=== PATIENT | female | born 1980 | race Caucasian/White ===

== ENCOUNTER → 2017-01-25 | Outpatient (CLI) | payer OTHER ==
--- NOTE | 2017-01-25 12:16 | Diagnostic Imaging Report ---
EXAMINATION: Transvaginal pelvic ultrasound. INDICATION: Dating. FINDINGS: There is an intrauterine gestational sac with mean sac diameter of 19 mm. This corresponds with gestational age of 6 weeks and 6 days and with an SAMEER of 09/14/2017. There is a yolk sac seen. No embryo is identified. There is a small subchorionic hemorrhage measuring 1.2 x 3 mm. The left adnexa demonstrates a bilobed cystic lesion measuring 5.1 x 4.5 x 4.7 cm with thin septation seen. Surrounding ovarian tissue appears to have arterial waveforms seen. The right ovary is obscured by bowel gas. IMPRESSION: There is an intrauterine with yolk sac seen. At the current size of the sac, an embryo would typically be seen. The findings are concerning for failed although at this stage this is not considered definitive. Correlate with serial beta-hCG and followup ultrasound. Report was stat faxed to office of Dr. Antoinette Sherman @ 12:16 PM/miguelangel. Dictated by: Dictated on workstation # [id number]
== END ==
LOC: RAD 10:51
PROVIDERS: ATTEND Family Medicine
DX: Z34.91 Encounter for supervision of normal pregnancy, unspecified, first trimester (principal)
CPT/HCPCS: 76817

== ENCOUNTER → 2017-02-10 | Outpatient (CLI) | payer OTHER ==
--- NOTE | 2017-02-10 15:42 | Diagnostic Imaging Report ---
PROCEDURE: US OB SINGLE FETUS <14 WKS. TECHNIQUE: Multiple real-time grayscale images were obtained over the gravid uterus in various projections. INDICATION: Pelvic pain, followup threatened . COMPARISON: 01/25/2017. DISCUSSION: Single live intrauterine at 9 weeks 2 days by today's sonographic measurements. EDC is 09/13/2017. heart rate measures 169 beats per minute. [place]-rump length measures 2.5 cm. Neither ovary was visualized, likely obscured by bowel. No abnormal adnexal mass or fluid. IMPRESSION: 1. Single live intrauterine at 9 weeks 2 days by today's sonographic measurements. Dictated by: Dictated on workstation # [id number]
== END ==
LOC: RAD 12:26
PROVIDERS: ATTEND Family Medicine
DX: O20.0 Threatened abortion (principal); Z3A.09 9 weeks gestation of pregnancy
CPT/HCPCS: 76801

== ENCOUNTER → 2017-05-01 | Outpatient (CLI) | payer OTHER ==
--- NOTE | 2017-05-01 14:52 | Diagnostic Imaging Report ---
EXAMINATION: Right lower extremity duplex venous ultrasound. TECHNIQUE: DVT protocol. Multiple sonographic images with color Doppler and waveform interrogation were performed of the right lower extremity veins with compression and augmentation maneuvers. INDICATION: Right leg right calf pain. FINDINGS: The right lower extremity veins from the groin to below the knee veins were examined with normal color-flow, compressibility and normal waveform demonstrated. The great saphenous vein is patent. IMPRESSION: No evidence of DVT in the right lower extremity. Dictated by: Dictated on workstation # [id number]
== END ==
LOC: RAD 14:16
PROVIDERS: ATTEND Family Medicine
DX: Z36 Encounter for antenatal screening of mother (principal); Z3A.20 20 weeks gestation of pregnancy

== ENCOUNTER → 2017-06-01 | Outpatient (CLI) | payer MEDICAID ==
--- NOTE | 2017-06-01 17:17 | Diagnostic Imaging Report ---
INDICATION: survey. TECHNIQUE: Multiple real-time grayscale images were obtained over the gravid uterus. COMPARISON: None. FINDINGS: heart rate is 134 beats per minute. The placenta is posterior. No placenta previa. The cervix is closed and is 5.6 cm in length. Adequate amniotic fluid is seen. The posterior fossa, the lateral ventricles, the four-chamber view, stomach, kidneys, bladder and the spine appear unremarkable. Three-vessel cord and the cord insertion are not well demonstrated. Biometrical measurements are as follows: Biparietal 6.4 cm, age 25 weeks 5 days. Head circumference 23.3 cm, age 25 weeks 3 days. Abdominal circumference 20.9 cm, age 25 weeks 3 days. Femur length 4.6 cm, age 25 weeks 3 days. Sonographic estimate age: 25 weeks 4 days. Sonographic estimated date of delivery: 08/31/16. Estimated Weight: 810 gm (+/- 118 gm). LMP percentile: 53%. heart rate: 134 beats per minute. number: 1 of 1. IMPRESSION: The cord insertion and the three-vessel cord are not well demonstrated due to position. Reevaluation within two weeks is suggested. Dictated by: Dictated on workstation # [id number]
== END ==
LOC: RAD 11:51
PROVIDERS: ATTEND Obstetrics & Gynecology
DX: Z36.87 Encounter for antenatal screening for uncertain dates (principal); Z3A.25 25 weeks gestation of pregnancy
CPT/HCPCS: 76805

== ENCOUNTER 2017-06-05 09:43 | Outpatient (RCR) | payer MEDICAID, OTHER ==
[2017-09-01] MEDS ORDERED: CHOL-6 PO (08:10)
[2017-09-01] MEDS ORDERED: MAGN64TA11 PO (08:10)
[2017-09-01] MEDS ORDERED: PREN1TAB86 PO (08:10)
[2017-09-01] MEDS ORDERED: OMEG1CAP58 PO (08:10)
[2017-09-01] MEDS ORDERED: FERR325T5 PO (08:10)
[2017-09-01] MEDS ORDERED: CETI10CA PO (08:10)
== END 2017-09-03 | disposition home or self-care (01) ==
LOC: CARD 09:43
PROVIDERS: ATTEND Internal Medicine Cardiovascular Disease
DX: R00.2 Palpitations (principal); R53.83 Other fatigue; Z33.1 Pregnant state, incidental
CPT/HCPCS: 93225; 93226

== ENCOUNTER → 2017-06-05 | Outpatient (CLI) | payer MEDICAID, OTHER | LOC: CARD 09:41 | PROVIDERS: ATTEND Internal Medicine Cardiovascular Disease | DX: R00.2 Palpitations (principal); R53.83 Other fatigue; Z33.1 Pregnant state, incidental | CPT/HCPCS: 93306 ==

== ENCOUNTER 2017-09-01 07:20 | Outpatient (CLI) | payer MEDICAID ==
[~2017-09-01] VITALS: Ht 172.7 cm; Wt 101.2 kg
[2017-09-01 07:30] VITALS: BP 128/69
[2017-09-01 07:37] LABS: BILIRUBIN,URINE NEGATIVE (NEGATIVE); CLARITY,URINE CLEAR; COLOR,URINE YELLOW; GLUCOSE, URINE (UA) NEGATIVE (NEGATIVE); KETONES,URINE NEGATIVE (NEGATIVE); LEUKOCYTE ESTERASE ,URINE NEGATIVE (NEGATIVE); NITRITE,URINE NEGATIVE (NEGATIVE); PH,URINE 7 (5-9); PROTEIN,URINE NEGATIVE (NEGATIVE); UROBILINOGEN,URINE NORMAL (NORMAL)
[2017-09-01 07:40] VITALS: BP 120/62
[2017-09-01 07:44] LABS: BACTERIA,URINE NEGATIVE /HPF; SQUAMOUS EPITHELIAL CELL,UR 0-2 /HPF
[2017-09-01 08:00] VITALS: BP 121/66
[2017-09-01] MEDS ORDERED: FERR325T5 PO (08:10)
[2017-09-01] MEDS ORDERED: MAGN64TA11 PO (08:10)
[2017-09-01] MEDS ORDERED: CHOL-6 PO (08:10)
[2017-09-01] MEDS ORDERED: CETI10CA PO (08:10)
[2017-09-01] MEDS ORDERED: PREN1TAB86 PO (08:10)
[2017-09-01] MEDS ORDERED: OMEG1CAP58 PO (08:10)
[2017-09-01 08:15] VITALS: BP 115/59
[2017-09-01] MEDS ORDERED: INFLUENZA TRIvalent 2017-2018 0.5 ML/45 MCG SYR IM ONE (08:15)
--- NOTE | 2017-09-04 15:50 | Physician Query-Final Dx ---
MICHELLE STEEN 09/04/17 1550: Clinic Account Progress/Dx Physician Query: Please give diagnosis Date of Service Sep 01, 2017 at 07:20 ALESHIA CARDENAS DO 09/05/17 0848: Clinic Account Progress/Dx DIAGNOSIS: Diagnosis 38 week IUP Extremity swelling TOLAC candidate MICHELLE STEEN Sep 04, 2017 15:50 ALESHIA CARDENAS DO Sep 05, 2017 08:48
== END 2017-09-01 08:20 | disposition home or self-care (01) ==
LOC: LDRP 07:20 → WSo 07:20
PROVIDERS: ATTEND Obstetrics & Gynecology
DX: O99.89 Other specified diseases and conditions complicating pregnancy, childbirth and the puerperium (principal); M79.89 Other specified soft tissue disorders; Z3A.38 38 weeks gestation of pregnancy
CPT/HCPCS: 81000; 99212

== ENCOUNTER 2017-09-07 22:00 | Inpatient (IN) | payer MEDICAID ==
[2017-09-07] VITALS: BP 130/74
[~2017-09-07] VITALS: Ht 172.7 cm; Wt 101.3 kg
[~2017-09-07 22:00] MED LIST: CETI10CA PO; CHOL-6 PO; FERR325T5 PO; MAGN64TA11 PO; OMEG1CAP58 PO; PREN1TAB86 PO
[2017-09-07 22:50] VITALS: BP 138/82
[2017-09-07] MEDS ORDERED: D5 LR IV SOLUTION 1,000 ML IV ONE (23:05)
[2017-09-07] MEDS ORDERED: LACTATED RINGERS 1,000 ML IV ONE (23:05)
[2017-09-07] MEDS ORDERED: D5 LR IV SOLUTION 1,000 ML IV SCH (23:35)
[2017-09-07] MEDS ORDERED: AMPICILLIN INJECTION 2,000 MG in NS (IVPB) 50 ML IV SCH (23:35)
[2017-09-07] MEDS ORDERED: AMPICILLIN 2000 MG INJECTION (IM/IV) ONE (23:37)
[2017-09-07] MEDS ORDERED: NS (IVPB) 50 ML ONE (23:38)
[2017-09-07] MEDS ORDERED: MINERAL OIL CONCENTRATE 99.9% 15 ML UDC TOP PRN (23:45)
[2017-09-07 23:46] LABS: BASOPHILS % (AUTO) 0 % (0-10); EOSINOPHILS # (AUTO) 0.1 10^3/uL (0.0-0.3); EOSINOPHILS % (AUTO) 1 % (0-10); HEMATOCRIT 34 % (35-52); HEMOGLOBIN 11.9 G/DL (11.5-16.0); LYMPHOCYTES % (AUTO) 17 % (12-44); MEAN CORPUSCULAR HEMOGLOBIN 31 PG (25-34); MEAN CORPUSCULAR HGB CONC 35 G/DL (32-36); MEAN CORPUSCULAR VOLUME 90 FL (80-99); MEAN PLATELET VOLUME 10.6 FL (7.4-10.4); MONOCYTES # (AUTO) 0.8 X 10^3 (0.0-1.0); MONOCYTES % (AUTO) 7 % (0-12); NEUTROPHILS # (AUTO) 8.6 X 10^3 (1.8-7.8); NEUTROPHILS % (AUTO) 74 % (42-75); PLATELET COUNT 235 10^3/uL (130-400); RED BLOOD COUNT 3.84 10^6/uL (4.35-5.85); RED CELL DISTRIBUTION WIDTH 13.6 % (10.0-14.5); WHITE BLOOD COUNT 11.6 10^3/uL (4.3-11.0)
[2017-09-07] MEDS ORDERED: fentaNYL INJECTION 100 MCG/2 ML AMP ONE (23:50)
[2017-09-07] MEDS ORDERED: BUPIVACAINE 0.25% 30 ML (SENSORCAINE) VIAL ONE (23:51)
[2017-09-07] MEDS ORDERED: SUFENTA 0.6MCG/ML BUPIVA 0.125 100 ML ONE (23:52)
[2017-09-07 23:56] VITALS: BP 128/76
--- NOTE | 2017-09-07 23:58 | History & Physical-OB ---
OB - Chief Complaint & HPI Date/Time Date of Admission: Date of Admission: Sep 07, 2017 at 11:00 pm Time Seen by Provider: 11:15 Chief Complaint/History OB-Reason for Admission/Chief: Onset of Labor Hx : 8 Hx Para: 7 Expected Date of Delivery: Sep 13, 2017 Gestational Age in Weeks: 39 Gestational Age in Days: 1 Admission Nurse Assessment Rev: Yes History of Labs O pos Antibody neg RI RPR NR HBsAg NR HIV NR GC neg GBS pos Allergies and Home Medications Allergies Coded Allergies: cephalexin (Verified Allergy, Unknown, 09/01/17) nitrofurantoin (Verified Allergy, Unknown, 09/01/17) Home Medications Cetirizine HCl 10 Mg Capsule, 10 MG PO DAILY, (Reported) Cholecalciferol (Vitamin D3) 10,000 Unit Capsule, 10,000 UNIT PO DAILY, ( Reported) Ferrous Sulfate 325 Mg Tablet.dr, 325 MG PO DAILY, (Reported) Magnesium Chloride 64 Mg Tablet.dr, 8 DROP PO DAILY, (Reported) [place]-3 Fatty Acids/Fish Oil 1 Each Capsule, 1 CAP PO DAILY, (Reported) Vit W-Ca,Fe,FA(<1 mg) 1 Each Tablet, 1 TAB PO DAILY, (Reported) OB - History Hx of Present Care: Yes Ultrasounds: Normal mid trimester US Obstetrical Complications: None Medical Complications: None Patient Past Medical History n/a OB - Admission Exam Physical Exam HEENT: NCAT Heart: Rhythm Normal Lungs: Clear Abdomen: Gravid Extremities: Normal Reflexes: Normal Cervical Dilatation: 3cm Effacement: 75% Station: -1 Membranes: Intact Heart Rate: 120's Accelerations: Accelerations Present Decelerations: No Decelerations Short Term Variability: Present Health Safety Engineer Variability: Average (6-25) Contractions on Admission: < 5 Minutes Apart Intensity: Moderate Labs Laboratory Tests Test 09/07/17 23:30 Range/Units White Blood Count 11.6 H 4.3-11.0 10^3/uL Red Blood Count 3.84 L 4.35-5.85 10^6/uL Hemoglobin 11.9 11.5-16.0 G/DL Hematocrit 34 L 35-52 % Mean Corpuscular Volume 90 80-99 FL Mean Corpuscular Hemoglobin 31 25-34 PG Mean Corpuscular Hemoglobin Concent 35 32-36 G/DL Red Cell Distribution Width 13.6 10.0-14.5 % Platelet Count 235 130-400 10^3/uL Mean Platelet Volume 10.6 H 7.4-10.4 FL Neutrophils (%) (Auto) 74 42-75 % Lymphocytes (%) (Auto) 17 12-44 % Monocytes (%) (Auto) 7 0-12 % Eosinophils (%) (Auto) 1 0-10 % Basophils (%) (Auto) 0 0-10 % Neutrophils # (Auto) 8.6 H 1.8-7.8 X 10^3 Lymphocytes # (Auto) 2.0 1.0-4.0 X 10^3 Monocytes # (Auto) 0.8 0.0-1.0 X 10^3 Eosinophils # (Auto) 0.1 0.0-0.3 10^3/uL Basophils # (Auto) 0.0 0.0-0.1 10^3/uL OB - Assessment/Plan/Diagnosis Assessment Assessment: active labor Plan Induction Method: AROM Other Plan Start GBS prophylaxis, AROM once protocol is met. Discharge Diagnosis Diagnosis: 37 yo @ 39.1 TOLAC Latent labor GBS Pos ALESHIA CARDENAS DO Sep 07, 2017 11:58 pm
[2017-09-08] VITALS (44 sets, daily range): BP systolic 101–145; BP diastolic 56–88
[2017-09-08] MEDS ORDERED: SUFENTA 0.6MCG/ML BUPIVA 0.125 100 ML ONE (00:10)
[2017-09-08] MEDS ORDERED: OXYTOCIN/NORMAL SALINE 500 ML IV SCH ×2 (02:21→06:12)
[2017-09-08] MEDS: OXYTOCIN/NORMAL SALINE 500 ML IV SCH ×2 (02:23→02:35)
[2017-09-08] MEDS ORDERED: LACTATED RINGERS 1,000 ML IV ONE (03:29)
[2017-09-08] MEDS ORDERED: NALOXONE 0.4 MG/ML 1 ML (NARCAN) VIAL IV PRN (03:30)
[2017-09-08] MEDS ORDERED: ONDANSETRON 4 MG/2 ML (SDV) Z0FRAN IV PRN (03:30)
[2017-09-08] MEDS: AMPICILLIN INJECTION 1,000 MG in NS (IVPB) 50 ML IV SCH ×2 (03:39→17:47)
[2017-09-08] MEDS ORDERED: LIDOCAINE/EPI 2% 1:200,00 (XYLOCAINE) 10 ML VIAL ONE (04:50)
[2017-09-08] MEDS ORDERED: TETANUS,DIPTH,PERTUSS P/F (BOOSTRIX) 0.5 ML VIAL IM ONE (06:15)
[2017-09-08] MEDS ORDERED: BENZOCAINE/MENTHOL (DERMOPLAST) 56 ML CAN TP PRN (06:15)
[2017-09-08] MEDS ORDERED: HYDROcodone/APAP 5 MG/325 MG (LORTAB) TAB PO PRN (06:15)
[2017-09-08] MEDS ORDERED: MEASLES,MUMPS,RUBELLA 1 EA INJ SQ ONE (06:15)
[2017-09-08] MEDS ORDERED: WITCH HAZEL(TUCKS) 40 EA JAR TOP PRN (06:15)
[2017-09-08] MEDS ORDERED: DIBUCAINE (NUPERCAINAL) 1% OINT 30 GM TOP PRN (06:15)
--- NOTE | 2017-09-08 06:17 | OB Labor & Delivery Record ---
L&D History Date of Service Date of Service: Sep 08, 2017 History Expected Date of Delivery: Sep 13, 2017 Gestational Age in Weeks: 39 Hx : 8 Hx Para: 7 Complications Events: Routine care Operative Indications (Cesarea: N/A-Vaginal Delivery Intrapartal Events: None L&D Stage1 Stage One Onset of Labor - Date: Sep 08, 2017 Monitors and Tracing Monitor Mode: Internal Heart Rate: 135 Station: -2 Detention Variability: Average (6-10) Short Term Variability: Present Presentation: Vertex Vital Signs VS - Last 72 Hours, by Label 09/07/17 09/07/17 09/07/17 09/08/17 00:00 22:50 23:56 00:00 Temp 97.9 Pulse 67 93 81 71 Resp 18 18 18 18 B/P (MAP) 130/74 (92) 138/82 (100) 128/76 (93) 129/75 (93) Pulse Ox 100 09/08/17 09/08/17 09/08/17 09/08/17 00:02 00:04 00:09 00:12 Pulse 80 89 86 73 Resp 18 18 18 18 B/P (MAP) 127/76 (93) 135/79 (97) 134/79 (97) 139/63 (88) Pulse Ox 100 100 99 100 09/08/17 09/08/17 09/08/17 09/08/17 00:15 00:20 00:25 00:30 Pulse 83 76 88 70 Resp 18 18 18 18 B/P (MAP) 140/63 (88) 145/67 (93) 144/65 (91) 140/71 (94) Pulse Ox 100 99 99 100 09/08/17 09/08/17 09/08/17 09/08/17 00:35 00:40 00:50 01:00 Temp 97.0 Pulse 85 85 92 91 Resp 18 18 18 18 B/P (MAP) 138/67 (90) 132/67 (88) 125/60 (81) 117/64 (81) Pulse Ox 99 99 99 99 09/08/17 09/08/17 09/08/17 09/08/17 01:15 01:30 01:45 02:00 Pulse 74 77 73 70 Resp 18 18 18 18 B/P (MAP) 117/59 (78) 111/61 (78) 108/56 (73) 124/59 (80) Pulse Ox 98 96 96 97 09/08/17 09/08/17 09/08/17 09/08/17 02:15 02:30 02:45 03:00 Pulse 81 79 89 86 Resp 18 18 18 18 B/P (MAP) 110/59 (76) 111/56 (74) 118/59 (78) 110/57 (74) Pulse Ox 100 97 99 97 09/08/17 09/08/17 09/08/17 09/08/17 03:15 03:30 03:45 04:00 Temp 97.9 Pulse 81 79 77 93 Resp 18 18 18 18 B/P (MAP) 110/57 (74) 113/59 (77) 130/76 (94) 129/67 (87) Pulse Ox 97 98 09/08/17 09/08/17 09/08/17 09/08/17 04:15 04:30 04:45 05:00 Pulse 82 74 79 85 Resp 18 18 18 18 B/P (MAP) 133/71 (91) 125/60 (81) 122/65 (84) 121/63 (82) 09/08/17 09/08/17 05:15 05:30 Pulse 88 78 Resp 18 18 B/P (MAP) 115/67 (83) 114/65 (81) Rupture of Membranes Spontaneous Ruture of Membrane: No Amniotic Membrane Rupture Time: 0020 Amniotic Membrane Fluid Desc.: Clear Vaginal Bleeding Description: Normal Show Induction/Anesthesia Epidural Cath Placement - Time: 0002 L&D Stage2 Stage Two Stage II Date: Sep 08, 2017 Monitors and Tracing Monitor Mode: Internal Heart Rate: 135 Monitor Decelerations: Variable Short Term Variability: Present Position: Right Occiput Anterior Presentation: Vertex Cord Descript/Complications Cord Vessel Description: 3 Vessels Delivery Type Delivery Method: Spontaneous Vaginal Anterior Shoulder: Right Episiotomy/Perineal Laceration Laceraction(s)/Extensions: No Condition of Delivery 1 minute Comment: 7 5 minute Comment: 8 Condition of Infant Condition of : Living Exam: No Observed Abnormalities live female weight 7lbs 6 oz Resuscitation Resuscitation: N/A - Spontaneous Resp L&D Stage3 Stage Three Stage III Date: Sep 08, 2017 Pictocin Pitocin Administration mu/min: 30 Pitocin ml/hr: 30 Pitocin Administration Comment: Pitocin 30 mu started wide open at delivery of placenta Placenta Delivery Placenta Delivery: Spontaneous Delivery Summary Summary Estimated blood loss (mL): 200 200 mL Attending at delivery: Aleshia Cardenas DO Condition of Delivery Examined: Cervix Examined, Uterus Explored Post Hemorrhage: No Condition of Mother stable Condition of (s) stable ALESHIA CARDENAS DO Sep 08, 2017 06:17
--- NOTE | 2017-09-08 06:18 | Discharge Inst-Women's Service ---
Discharge Inst-Women's Serv Depart Medication/Instructions New, Converted or Re-Newed RX: RX on Chart Consults/Follow Up Additional Follow Up: Yes Orders/Referrals Dr. Cardenas in 6 weeks Activity Activity: Activity as Tolerated Driving Instructions: No Driving for 1 Week NO SMOKING: NO SMOKING Nothing Inside Vagina: No Douching, No [place], No Tampons Diet Discharge Diet: No Restrictions Symptoms to Report to : Bleeding Excessive, Pain Increased, Fever Over 101 Degrees F, Vaginal Bleeding Increase, Questions/Concerns For Any Problems or Questions: Contact Your Physician Skin/Wound Care Bathing Instructions: Shower (or stiz baths x 2 week) ALESHIA CARDENAS DO Sep 08, 2017 06:18
[2017-09-08] MEDS ORDERED: DOCU100C37 PO (06:19)
[2017-09-08] MEDS ORDERED: IBUP-1773 PO (06:19)
[2017-09-08] MEDS ORDERED: ACHD5005 PO (06:19)
[2017-09-08] MEDS ORDERED: FERR325T18 PO (06:19)
[2017-09-08] MEDS: CATHETER FLUSH 10 ML SYR IV SCH ×2 (06:49→17:47)
[2017-09-08] MEDS: PRENATAL VITAMIN 1 EA TAB PO SCH (10:09)
[2017-09-08] MEDS: FERROUS SULF 325 MG (IRON) TAB PO SCH (10:10)
[2017-09-08] MEDS: DOCUSATE SODIUM 100 MG (COLACE) CAP PO SCH ×2 (10:10→20:36)
[2017-09-08] MEDS ORDERED: INFLUENZA TRIvalent 2017-2018 0.5 ML/45 MCG SYR IM ONE (10:15)
[2017-09-08] MEDS: IBUPROFEN 600 MG (MOTRIN) TAB PO SCH ×3 (13:15→22:56)
[2017-09-08] MEDS ORDERED: CATHETER FLUSH 10 ML SYR IV SCH (14:00)
[2017-09-09 05:15] VITALS: BP 130/79
[2017-09-09] MEDS: IBUPROFEN 600 MG (MOTRIN) TAB PO SCH ×4 (05:23→22:14)
[2017-09-09 06:11] LABS: BASOPHILS % (AUTO) 0 % (0-10); EOSINOPHILS # (AUTO) 0.2 10^3/uL (0.0-0.3); EOSINOPHILS % (AUTO) 2 % (0-10); HEMATOCRIT 35 % (35-52); HEMOGLOBIN 11.7 G/DL (11.5-16.0); LYMPHOCYTES % (AUTO) 19 % (12-44); MEAN CORPUSCULAR HEMOGLOBIN 31 PG (25-34); MEAN CORPUSCULAR HGB CONC 34 G/DL (32-36); MEAN CORPUSCULAR VOLUME 92 FL (80-99); MEAN PLATELET VOLUME 10.5 FL (7.4-10.4); MONOCYTES # (AUTO) 0.6 X 10^3 (0.0-1.0); MONOCYTES % (AUTO) 6 % (0-12); NEUTROPHILS # (AUTO) 7.7 X 10^3 (1.8-7.8); NEUTROPHILS % (AUTO) 73 % (42-75); PLATELET COUNT 216 10^3/uL (130-400); RED BLOOD COUNT 3.79 10^6/uL (4.35-5.85); RED CELL DISTRIBUTION WIDTH 13.7 % (10.0-14.5); WHITE BLOOD COUNT 10.5 10^3/uL (4.3-11.0)
[2017-09-09] MEDS: PRENATAL VITAMIN 1 EA TAB PO SCH (07:00)
[2017-09-09 08:44] VITALS: BP 131/71
[2017-09-09] MEDS: FERROUS SULF 325 MG (IRON) TAB PO SCH (09:00)
[2017-09-09] MEDS: DOCUSATE SODIUM 100 MG (COLACE) CAP PO SCH ×2 (09:00→22:14)
[2017-09-09 16:46] VITALS: BP 107/59
[2017-09-09 22:14] VITALS: BP 137/85
[2017-09-10 04:59] VITALS: BP 119/69
[2017-09-10] MEDS: IBUPROFEN 600 MG (MOTRIN) TAB PO SCH ×2 (04:59→10:39)
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
--- OUTSIDE RECORDS SUMMARY | 2017-09-10 06:07 | XMS REPORT ---
Author Author WILL BOBO [facility] Address [address] [place] [address] Care Team Providers Care Business Solutions Architect Name Role Phone WILL BOBO Unavailable PROBLEMS Type Condition ICD9-CM Code NMR72-QH Code Onset Dates Condition Status SNOMED Code Problem Fibromyalgia M79.7 Active 404512404 Problem Anxiety F41.9 Active 37370892 Problem Asthma, unspecified, unspecified status 493.90 Active 42174551 ALLERGIES Substance Reaction Event Type Date Status Macrobid Unknown Drug Allergy December, Active Keflex Unknown Drug Allergy December, Active SOCIAL HISTORY Never Assessed PLAN OF CARE VITAL SIGNS MEDICATIONS Unknown Medications RESULTS No Results PROCEDURES No Known procedures IMMUNIZATIONS No Known Immunizations MEDICAL (GENERAL) HISTORY Type Description Date Medical History Fibromyalgia- possible Surgical History section Surgical History Tumor Removal from Right Breast -Benign Surgical History Hernia Repair Hospitalization History childbirth only
--- OUTSIDE RECORDS SUMMARY | 2017-09-10 06:07 | XMS REPORT ---
Author Author GENIA EASLEY [facility] Address Unknown Care Team Providers Care Transfer Table Operator Helper Name Role Phone KAUSHAL GENIA Unavailable PROBLEMS Type Condition ICD9-CM Code GFA17-TH Code Onset Dates Condition Status SNOMED Code Problem Fibromyalgia M79.7 Active 753051947 Problem Anxiety F41.9 Active 65985519 Problem Asthma, unspecified, unspecified status 493.90 Active 07294214 ALLERGIES Substance Reaction Event Type Date Status Macrobid Unknown Drug Allergy Jul, Active Keflex Unknown Drug Allergy Jul, Active SOCIAL HISTORY No smoking Hx information available PLAN OF CARE Activity Details Follow Up prn Reason:hygiene VITAL SIGNS Blood pressure systolic 119 mmHg 2016-07-27 Blood pressure diastolic 61 mmHg 2016-07-27 MEDICATIONS Medication Instructions Dosage Frequency Start Date End Date Duration Status Albuterol Active Zyrtec Allergy Active RESULTS No Results PROCEDURES Procedure Date Ordered Related Diagnosis Body Site EXTRAC ERUPTED TOOTH/EXPOSED ROOT Jul 27, 2016 IMMUNIZATIONS No Known Immunizations
--- OUTSIDE RECORDS SUMMARY | 2017-09-10 06:07 | XMS REPORT ---
Author Author MISSAEL BUSTILLOS Organization [facility] [place] Address [address] [place] [address] Care Team Providers Care Elevator Runner Name Role Phone MISSAEL BUSTILLOS Unavailable PROBLEMS Type Condition ICD9-CM Code AXL82-DI Code Onset Dates Condition Status SNOMED Code Problem Fibromyalgia M79.7 Active 813837055 Problem Anxiety F41.9 Active 11699183 Problem Asthma, unspecified, unspecified status 493.90 Active 15700914 ALLERGIES Substance Reaction Event Type Date Status Macrobid Unknown Drug Allergy Jan, Active Keflex Unknown Drug Allergy Jan, Active SOCIAL HISTORY Never Assessed PLAN OF CARE Activity Details Follow Up 4 Weeks Reason: VITAL SIGNS Height 68 in 2017-01-16 Weight 221.0 lbs 2017-01-16 Temperature 98.1 degrees Fahrenheit 2017-01-16 Heart Rate 76 bpm 2017-01-16 Respiratory Rate 20 2017-01-16 BMI 33.603 kg/m2 2017-01-16 Blood pressure systolic 132 mmHg 2017-01-16 Blood pressure diastolic 76 mmHg 2017-01-16 MEDICATIONS Medication Instructions Dosage Frequency Start Date End Date Duration Status Collagen - Active Probiotic - Active Magnesium Chloride - Active Vitamin D3 5000 UNIT Orally Once a day 2 capsules 24h Active Wallace 3 1000 MG Orally Once a day 1 capsule 24h Active RESULTS Name Result Date Reference Range TSH () 2017-01-16 TSH 2.880 0.450-4.500 CBC 2017-01-16 WBC 8.1 3.4-10.8 RBC 4.57 3.77-5.28 Hemoglobin 13.8 11.1-15.9 Hematocrit 40.3 34.0-46.6 MCV 88 79-97 MCH 30.2 26.6-33.0 MCHC 34.2 31.5-35.7 RDW 13.2 12.3-15.4 Platelets 353 150-379 Neutrophils 59 Lymphs 31 Monocytes 7 Eos 2 Basos 1 Neutrophils (Absolute) 4.8 1.4-7.0 Lymphs (Absolute) 2.5 0.7-3.1 Monocytes(Absolute) 0.6 0.1-0.9 Eos (Absolute) 0.1 0.0-0.4 Baso (Absolute) 0.0 0.0-0.2 Immature Granulocytes 0 Immature Grans (Abs) 0.0 0.0-0.1 ANTIBODY SCREEN 2017-01-16 Antibody Screen Negative Negative BLOOD TYPE/RH FACTOR 2017-01-16 ABO Grouping O Rh Factor Positive RUBELLA ANTIBODIES, IgG 2017-01-16 Rubella Antibodies, IgG 1.78 Immune >0.99 TEST, URINE (IN HOUSE) 2017-01-16 RESULTS Positive Lot # [id number] Control + Exp date 04/13/2018 TRICHOMONAS (IN HOUSE) 2017-01-16 TRICHOMONAS negative Control + Lot # [id number] Exp date 01/2018 BACTERIAL VAGINOSIS (IN HOUSE) 2017-01-16 RESULTS negative Control + Lot # [id number] Exp date 08/2017 CULTURE, GENITAL 2017-01-16 Genital Culture, Routine Final report Result 1 Please note Ultrasound : OB, Early <14 WEEKS 2017-01-25 GC/CHLAM PROBE (STATE) 2017-01-16 CHLAMYDIA negative GC negative SYPHILIS (STATE) 2017-01-16 HIV (STATE) 2017-01-16 HEP B SURFACE ANTIGEN (STATE) 2017-01-16 HEP B ANTIBODY negative HEP B ANTIBODY ([facility]) HEP B [facility]TIBODY ([facility]) PROCEDURES Procedure Date Ordered Result Body Site GOODRICH VAG, DNA, DIR PROBE January 16, 2017 TRICHOMONAS ASSAY W/OPTIC January 16, 2017 VENIPUNCT, ROUTINE* January 16, 2017 URINE TEST January 16, 2017 RBC ANTIBODY SCREEN January 16, 2017 BLOOD TYPING, ABO January 16, 2017 BLOOD TYPING, RH (D) January 16, 2017 CULTURE, BACTERIA, OTHER January 16, 2017 No Charge January 16, 2017 ASSAY THYROID STIM HORMONE January 16, 2017 RUBELLA ANTIBODY January 16, 2017 COMPLETE CBC W/AUTO DIFF WBC January 16, 2017 IMMUNIZATIONS No Known Immunizations MEDICAL (GENERAL) HISTORY Type Description Date Medical History Fibromyalgia- possible Surgical History section Surgical History Tumor Removal from Right Breast -Benign Surgical History Hernia Repair Hospitalization History childbirth only
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
--- OUTSIDE RECORDS SUMMARY | 2017-09-10 06:07 | XMS REPORT ---
Author Author DANILO GAMBOA [facility] Address [address] [place] [address] Care Team Providers Care Community Administrator Name Role Phone DANILO GAMBOA Unavailable PROBLEMS Type Condition ICD9-CM Code LZI77-TO Code Onset Dates Condition Status SNOMED Code Problem Fibromyalgia M79.7 Active 208701984 Problem Anxiety F41.9 Active 45892046 Problem Asthma, unspecified, unspecified status 493.90 Active 21351949 ALLERGIES No Known Allergies SOCIAL HISTORY No smoking Hx information available PLAN OF CARE VITAL SIGNS MEDICATIONS No Known Medications RESULTS Name Result Date Reference Range HALLEY ANALYZER 2016-08-31 HALLEY Direct Negative Negative See below: MAGNESIUM, SERUM 2016-08-31 Magnesium, Serum 1.9 1.6-2.3 TSH 2016-08-31 TSH 1.570 0.450-4.500 CBC 2016-08-31 WBC 5.7 3.4-10.8 RBC 4.53 3.77-5.28 Hemoglobin 13.2 11.1-15.9 Hematocrit 38.9 34.0-46.6 MCV 86 79-97 MCH 29.1 26.6-33.0 MCHC 33.9 31.5-35.7 RDW 13.1 12.3-15.4 Platelets 278 150-379 Neutrophils 61 Lymphs 29 Monocytes 5 Eos 4 Basos 1 Neutrophils (Absolute) 3.6 1.4-7.0 Lymphs (Absolute) 1.6 0.7-3.1 Monocytes(Absolute) 0.3 0.1-0.9 Eos (Absolute) 0.2 0.0-0.4 Baso (Absolute) 0.0 0.0-0.2 Immature Granulocytes 0 Immature Grans (Abs) 0.0 0.0-0.1 RA (RHEUMATOID) FACTOR 2016-08-31 RA Latex Turbid. <10.0 0.0-13.9 CRP 2016-08-31 C-Reactive Protein, Quant 1.6 0.0-4.9 VITAMIN D, 25-H 2016-08-31 Vitamin D, 25-Hydroxy 19.7 30.0-100.0 LIPID PANEL 2016-08-31 Cholesterol, Total 134 100-199 Triglycerides 68 0-149 HDL Cholesterol 50 >39 VLDL Cholesterol Dinesh 14 5-40 LDL Cholesterol Calc 70 0-99 CMP 2016-08-31 Glucose, Serum 93 65-99 BUN 10 6-20 Creatinine, Serum 0.81 0.57-1.00 eGFR If NonAfricn Am 94 >59 eGFR If Africn Am 108 >59 BUN/Creatinine Ratio 12 8-20 Sodium, Serum 139 134-144 Potassium, Serum 4.7 3.5-5.2 Chloride, Serum 102 96-106 Carbon Dioxide, Total 26 18-29 Calcium, Serum 9.2 8.7-10.2 Protein, Total, Serum 6.5 6.0-8.5 Albumin, Serum 4.2 3.5-5.5 Globulin, Total 2.3 1.5-4.5 A/G Ratio 1.8 1.1-2.5 Bilirubin, Total 0.6 0.0-1.2 Alkaline Phosphatase, S 65 39-117 AST (SGOT) 17 0-40 ALT (SGPT) 16 0-32 PROCEDURES Procedure Date Ordered Related Diagnosis Body Site VENIPUNCT, ROUTINE* Aug 31, 2016 COMPLETE CBC W/AUTO DIFF WBC Aug 31, 2016 COMPREHEN METABOLIC PANEL Aug 31, 2016 ASSAY OF MAGNESIUM Aug 31, 2016 LIPID PANEL Aug 31, 2016 RHEUMATOID FACTOR, QUANT Aug 31, 2016 ANTINUCLEAR ANTIBODIES Aug 31, 2016 C-REACTIVE PROTEIN Aug 31, 2016 ASSAY THYROID STIM HORMONE Aug 31, 2016 ASSAY OF VITAMIN D Aug 31, 2016 IMMUNIZATIONS No Known Immunizations
--- OUTSIDE RECORDS SUMMARY | 2017-09-10 06:07 | XMS REPORT ---
Author Author GENIA EASLEY [facility] Address Unknown Care Team Providers Care Automatic Bandsaw Tender Name Role Phone GENIA EASLEY Unavailable PROBLEMS Type Condition ICD9-CM Code [id number] Code Onset Dates Condition Status SNOMED Code Problem Fibromyalgia M79.7 Active 191628266 Problem Anxiety F41.9 Active 31042613 Problem Asthma, unspecified, unspecified status 493.90 Active 35825307 ALLERGIES Substance Reaction Event Type Date Status Macrobid Unknown Drug Allergy Jun, Active Keflex Unknown Drug Allergy Jun, Active SOCIAL HISTORY No smoking Hx information available PLAN OF CARE Activity Details Follow Up 2 Weeks Reason:surgical TE VITAL SIGNS Blood pressure systolic 112 mmHg 2016-07-01 Blood pressure diastolic 67 mmHg 2016-07-01 MEDICATIONS Medication Instructions Dosage Frequency Start Date End Date Duration Status Zyrtec Allergy Active Amoxicillin 500 MG Orally Three times a day 1 capsule 8h Jun, 7 days Active Albuterol Active RESULTS No Results PROCEDURES Procedure Date Ordered Related Diagnosis Body Site LTD ORAL EVALUATION - PROBLEM FOCUS Jul 01, 2016 INTRAORL-PERIAPICAL 1 FILM [id number] Jul 01, 2016 BITEWING - SINGLE FILM Jul 01, 2016 IMMUNIZATIONS No Known Immunizations
[2017-09-10] MEDS: PRENATAL VITAMIN 1 EA TAB PO SCH (07:00)
[2017-09-10] MEDS: DOCUSATE SODIUM 100 MG (COLACE) CAP PO SCH (09:00)
[2017-09-10] MEDS: FERROUS SULF 325 MG (IRON) TAB PO SCH (09:00)
[2017-09-10 10:39] VITALS: BP 139/82
--- NOTE | 2017-09-10 12:22 | Progress Note-Standard ---
Standard Progress Note Progress Notes/Assess & Plan Date Seen by Provider: Sep 09, 2017 Time Seen by Provider: 13:30 Progress/Assessment & Plan Late entry Baby not being discharged today. Day 1 s/p . Doing well Hgb 11.7 BP 131/71 afebrile no complaints FF and below the umbilicus. Plan dc to home or parent room tomorrow JAMIE ALTAMIRANO DO Sep 10, 2017 12:22
--- NOTE | 2017-09-10 12:24 | Postpartum Progress Note ---
Note Note Day # 2 s/p Subjective: Patient is without complaints. Ambulating, voiding. Tolerating a regular diet without nausea or vomiting. Normal lochia. Pain is well controlled with oral pain medications. breast feeding. Objective: Vital Sign - Last 12Hours 09/10/17 09/10/17 04:59 10:39 Temp 97.6 97.6 Pulse 60 75 Resp 18 18 B/P (MAP) 119/69 (86) 139/82 (101) Pulse Ox 98 99 O2 Delivery Room Air Room Air Physical Exam: General - Alert and oriented, no apparent distress Abdomen - Soft, appropriately tender to palpation, non-distended, fundus firm at umbilicus Extremities - no edema, negative Tracie's bilaterally Assessment: 1. post- day # 2, status post spont vaginal delivery. Recovering well, hemodynamically stable Plan: Routine care. Encourage breast feeding. Encourage ambulation. Ferrous sulfate supplementation. Plan for discharge today Vitals - Labs Vital Signs - I&O Vital Signs Date Time Temp Pulse Resp B/P (MAP) Pulse Ox O2 Delivery O2 Flow Rate FiO2 09/10/17 10:39 97.6 75 18 139/82 (101) 99 Room Air 09/10/17 04:59 97.6 60 18 119/69 (86) 98 Room Air 09/09/17 22:14 96.9 73 18 137/85 (102) 99 Room Air 09/09/17 16:46 98.2 65 18 107/59 (75) 99 JAMIE ALTAMIRANO DO Sep 10, 2017 12:24
[2017-09-10 13:10] VITALS: BP 139/82
--- NOTE | 2017-09-12 15:15 | Physician Query-Final Dx ---
DMITRIY HI 09/12/17 1515: Final Diagnosis Give Final Diagnosis Please give Final Diagnosis ALESHIA CARDENAS DO 09/13/17 0816: Final Diagnosis Give Final Diagnosis s/p () DMITRIY HI Sep 12, 2017 15:15 ALESHIA CARDENAS DO Sep 13, 2017 08:16
== END 2017-09-10 13:10 | disposition home or self-care (01) | DRG 775 ==
LOC: LDRP 22:00 → WSo 22:00 → LDRP 23:00 → WSo 23:00 → LDRP 09-08 08:53
PROVIDERS: ADMIT Obstetrics & Gynecology; ATTEND Obstetrics & Gynecology
PROC: 10E0XZZ Delivery of Products of Conception, External Approach (ICD-10-PCS; principal; 2017-09-08)
DX: O99.824 Streptococcus B carrier state complicating childbirth (principal); Z37.0 Single live birth; Z3A.39 39 weeks gestation of pregnancy
CPT/HCPCS: 36415; 85025; 86850; 86900; 86901; 99212

== ENCOUNTER 2017-10-24 14:41 | Outpatient (CLI) | payer MEDICAID ==
[~2017-10-24] VITALS: Ht 172.7 cm; Wt 89.4 kg
[~2017-10-24 14:41] MED LIST changes: +ACHD5005 PO; +DOCU100C37 PO; +FERR325T18 PO; +IBUP-1773 PO
[2017-10-24 14:56] VITALS: BP 119/70
[2017-10-24] MEDS ORDERED: AZIT250T12 PO (15:33)
[2017-10-26] MEDS ORDERED: IBUP-1773 PO (10:10)
[2017-10-26] MEDS ORDERED: SIME80TA16 PO (10:10)
[2017-10-26] MEDS ORDERED: DOCU100C37 PO (10:10)
[2017-10-26] MEDS ORDERED: HYDR-34 PO (10:10)
== END 2017-10-24 15:09 | disposition home or self-care (01) ==
LOC: PREOP 14:41
PROVIDERS: ATTEND Obstetrics & Gynecology
DX: Z01.818 Encounter for other preprocedural examination (principal); Z11.2 Encounter for screening for other bacterial diseases; N81.6 Rectocele
CPT/HCPCS: 87081

== ENCOUNTER 2017-10-26 06:00 | Day surgery (SDC) | payer MEDICAID ==
[2017-10-26] VITALS (7 sets, daily range): BP systolic 92–108; BP diastolic 50–68
[~2017-10-26] VITALS: Ht 172.7 cm; Wt 89.4 kg
[~2017-10-26 06:00] MED LIST changes: +AZIT250T12 PO
[2017-10-26] MEDS: LACTATED RINGERS 1,000 ML IV PRN ×3 (06:20→10:14)
--- OUTSIDE RECORDS SUMMARY | 2017-10-26 06:20 | XMS REPORT | Continuity of Care Document ---
Author Author [facility] Address Unknown Phone Unavailable Allergies Active [...] Procedures Code Description [place] [address] ROUTINE VENIPUNCTURE 05/31/2012 73615 HCG QUANTITATIVE 06/01/2012 99751 ROUTINE VENIPUNCTURE 06/05/2012 44325 HCG QUANTITATIVE 06/06/2012 11757 XRAY SHOULDER RIGHT COMP 2 VIEWS 10/02/2012 40912 XRAY HUMERUS RIGHT 2 VIEWS 10/02/2012 37026 XRAY FOREARM RIGHT 2 VIEWS 10/02/2012 Results There is no data. Encounters ACCT No. Visit Date/Time Discharge Status Pt. Type Provider Facility Loc./Unit Complaint [id number] 09/25/2012 15:17:00 09/25/2012 23:59:59 [place] [id number] 06/05/2012 13:03:00 06/05/2012 23:59:59 CLS Outpatient DANILO GAMBOA DO
[2017-10-26] MEDS ORDERED: VASOPRESSIN INJECTION 20 UNIT/ML VIAL ONE (06:30)
[2017-10-26] MEDS ORDERED: ESTROGENS CONJ. CREAM 30 GM (PREMARIN) TUBE ONE (06:30)
[2017-10-26] MEDS ORDERED: NS (IVPB) 100 ML ONE (06:30)
[2017-10-26] MEDS ORDERED: ONDANSETRON 4 MG/2 ML (SDV) Z0FRAN ONE (06:37)
[2017-10-26] MEDS ORDERED: ROCURONIUM 10 MG/ML 5 ML SYRINGE IV ONE (06:37)
[2017-10-26] MEDS ORDERED: LIDOCAINE PF 2% 5 ML (XYLOCAINE) VIAL ONE (06:37)
[2017-10-26] MEDS ORDERED: SUCCINYLCHOLINE INJ 100 MG/5 ML SYR ONE (06:37)
[2017-10-26] MEDS ORDERED: DEXAMETHASONE 10 MG/ML (DECADRON) 1 ML VIAL ONE (06:37)
[2017-10-26] MEDS ORDERED: proPOfol 200 MG/20 ML (DIPRIVAN) VIAL IV ONE (06:37)
[2017-10-26] MEDS ORDERED: SEVOFLURANE (ULTANE) 15 ML INHAL SOLN ONE ×10 (06:37→09:29)
[2017-10-26] MEDS ORDERED: fentaNYL INJECTION 100 MCG/2 ML AMP ONE (06:38)
[2017-10-26] MEDS ORDERED: MIDAZOLAM 2 MG/2 ML (VERSED) VIAL ONE (06:38)
[2017-10-26] MEDS ORDERED: CLINDAMYCIN 900 MG/50 ML IVPB 50 ML IV ONE ×3 (07:06→07:30)
[2017-10-26] MEDS ORDERED: metroNIDAZOLE 500MG/100ML IVPB 100 ML ONE (07:06)
--- NOTE | 2017-10-26 07:11 | Progress Note-Pre Operative ---
Pre-Operative Progress Note H&P Reviewed The H&P was reviewed, patient examined and no changes noted. Date Seen by Provider: Oct 26, 2017 Time Seen by Provider: 07:05 Date H&P Reviewed: Oct 26, 2017 Time H&P Reviewed: 07:05 Pre-Operative Diagnosis: POP, Rectocele ALESHIA CARDENAS DO Oct 26, 2017 7:11 am
[2017-10-26] MEDS ORDERED: CATHETER FLUSH 10 ML SYR IV PRN (07:30)
[2017-10-26] MEDS ORDERED: metroNIDAZOLE 500MG/100ML IVPB 100 ML IV ONE (07:30)
[2017-10-26] MEDS: BUPIVACAINE 0.25% 30 ML (SENSORCAINE) VIAL ONE (07:40)
[2017-10-26] MEDS ORDERED: LACTATED RINGERS 1,000 ML IV ONE (07:47)
[2017-10-26] MEDS ORDERED: MEPERIDINE (DEMEROL) INJ 50 MG/ML IVP PRN (09:00)
[2017-10-26] MEDS ORDERED: ONDANSETRON 4 MG/2 ML (SDV) Z0FRAN IVP PRN (09:00)
[2017-10-26] MEDS ORDERED: KETOROLAC 30 MG/ML VIAL ONE ×2 (09:14→09:46)
[2017-10-26] MEDS: KETOROLAC 30 MG/ML VIAL IV PRN ×3 (09:50→22:19)
[2017-10-26] MEDS ORDERED: CHLORASEPTIC LOZENGE MM PRN (10:00)
[2017-10-26] MEDS ORDERED: ANTACID SUSP 30 ML UDC (MYLANTA) PO PRN (10:00)
[2017-10-26] MEDS ORDERED: SIMETHICONE 80 MG (MYLICON) CHEW PO PRN (10:00)
[2017-10-26] MEDS ORDERED: ONDANSETRON 4 MG/2 ML (SDV) Z0FRAN IV PRN (10:00)
[2017-10-26] MEDS ORDERED: ZOLPIDEM 5 MG (AMBIEN) TAB PO PRN (10:00)
--- NOTE | 2017-10-26 10:08 | Discharge Inst-Women's Service ---
Discharge Inst-Women's Serv Depart Medication/Instructions New, Converted or Re-Newed RX: RX on Chart Consults/Follow Up Additional Follow Up: Yes Orders/Referrals Dr. Myrick in 7-10 days and in 8 weeks Activity Activity: Activity as Tolerated Driving Instructions: No Driving for 1 Week NO SMOKING: NO SMOKING Nothing Inside Vagina: No Douching, No [place], No Tampons Diet Discharge Diet: No Restrictions Symptoms to Report to : Bleeding Excessive, Pain Increased, Fever Over 101 Degrees F, Vaginal Bleeding Increase, Questions/Concerns For Any Problems or Questions: Contact Your Physician Skin/Wound Care Infection Signs and Symptoms: Increased Redness, Foul Odor of Wound, Increased Drainage, Skin Itchy or Has a Rash, Increased Swelling, Temperature Above 101 F Operative Area Clean and Dry: Keep Incision Clean/Dry Stitches/Lupe/Dermabond: Dermabond, Care of Stitches Bathing Instructions: ALESHIA Clinton DO Oct 26, 2017 10:08 am
[2017-10-26] MEDS ORDERED: HYDR-34 PO (10:10)
[2017-10-26] MEDS ORDERED: IBUP-1773 PO (10:10)
[2017-10-26] MEDS ORDERED: SIME80TA16 PO (10:10)
[2017-10-26] MEDS ORDERED: DOCU100C37 PO (10:10)
[2017-10-26] MEDS: morphine INJ 10 MG/ML 1ML (SYR OR VIAL) IVP PRN ×2 (10:10→10:14)
[2017-10-26] MEDS ORDERED: PROMETHAZINE INJ 25 MG/ML (PHENERGAN) AMP ONE (10:13)
[2017-10-26] MEDS ORDERED: HYDROmorphone (DILAUDID) 2 MG/ML VIAL IVP PRN (10:30)
[2017-10-26] MEDS ORDERED: PROMETHAZINE INJ 25 MG/ML (PHENERGAN) AMP IVP PRN (10:30)
[2017-10-26] MEDS: LACTATED RINGERS 1,000 ML IV SCH ×3 (11:20→22:20)
[2017-10-26] MEDS: HYDROcodone/APAP 7.5 MG/325 MG (LORTAB, LORCET PLUS) TABLET PO PRN ×3 (13:30→22:19)
--- NOTE | 2017-10-26 14:09 | Anesthesia-General Post-Op ---
General Patient Condition Mental Status/LOC: Same as Preop Cardiovascular: Satisfactory Nausea/Vomiting: Absent Respiratory: Satisfactory Pain: Controlled Complications: Absent Post Op Complications Complications None Follow Up Care/Instructions Patient Instructions None needed. Anesthesia/Patient Condition Patient Condition Patient is doing well, no complaints, stable vital signs, no apparent adverse anesthesia problems. No complications reported per nursing. D/C home per [facility] Criteria: Yes JORGITO MONTES DE OCA CRNA Oct 26, 2017 14:09
--- NOTE | 2017-10-26 16:42 | OPERATIVE REPORT ---
DATE OF SERVICE: PREOPERATIVE DIAGNOSES: 1. A 37-year-old female with pelvic organ prolapse. 2. Rectocele level 3. 3. Perineal laxity. POSTOPERATIVE DIAGNOSES: 1. A 37-year-old female with pelvic organ prolapse. 2. Rectocele level 3. 3. Perineal laxity. PROCEDURE: Robotic-assisted total laparoscopic hysterectomy with bilateral salpingectomy with posterior colporrhaphy and perineoplasty. SURGEON: Roberto Cardenas DO. RN HEART: REMEDIOS Patel. ANESTHESIA: General endotracheal. ESTIMATED BLOOD LOSS: 350 mL. URINE: 500 mL clear at the end of the procedure. FLUIDS: 1100 mL of lactate Ringer solution. FINDINGS: A significantly prolapsed rectocele to the level of the vaginal introitus followed very closely by the posterior aspect of the vaginal fornix and the cervix and grade II to grade III prolapse of the uterus itself. Grossly normal-appearing ovaries bilaterally, grossly normal-appearing fallopian tubes. SPECIMEN SENT: Uterus, bilateral fallopian tubes. INDICATIONS FOR PROCEDURE: This 37-year-old female who has approximately 6 to 7 weeks from vaginal after . After her 6-week followup, she described significant amount of discomfort in the pelvis including pressure as well as difficulty passing bowel movement, having to place a finger within the vagina to reduce the stool around to the rectum and to defecate. She wished to proceed with definitive measures and treatment for this. Since the recovery timeframe from delivery has passed now, I discussed with her proceeding with hysterectomy due to the descent of the uterus versus pessary placement; however, pessary placement will not recurrent the rectocele that she has, so I discussed with the patient posterior colporrhaphy as well as perineoplasty due to the laxity of the perineal body. The procedure itself was discussed with the patient in detail and all three levels. I also did discuss the patient the risk of the procedure including risk of bleeding, infection, damage to internal structures including, but not limited to bowel, bladder, ureter, kidneys, need for possible reoperation if any of those injuries should occur, postoperative recovery time, postoperative thromboembolic events, risk from anesthesia, risk for possible need for blood transfusion and even . After everything was discussed with the patient, consent was obtained in the preoperative area and the patient was taken to the operating room. OPERATIVE NOTE IN DETAIL: Once in the operating room, general anesthesia was found to be adequate, placed in dorsal lithotomy position, prepped and draped in normal sterile fashion. A timeout was performed. I then proceeded with placing a Grijalva catheter using sterile technique. A weighted speculum was inserted to the patient's vagina. A right angle retractor was used to visualize the cervix, which was grasped at 12 o'clock position using a long Allis clamp and 0 Vicryl suture was then placed in the anterior lip of the cervix and the Allis clamp was removed. The suture was then used as my retraction point on the cervix. I then sounded the uterine cavity depth and it was found to be 8 cm. I then selected an 8 cm Kyra uterine manipulator tip and a 3.5 cm colpotomy ring and placed the manipulator tip of the Ykra into the uterus deploying the balloon and advancing the colpotomy ring around the vaginal fornix. Once this was in place, I am able to appreciate manipulation on bimanual examination. I then removed all the other instruments from the patient's vagina other than the Kyra and the Grijalva. I performed a change of gloves and took my attention to the abdomen where infraumbilically I infiltrated this area using 0.25% Marcaine and make an 8 mm incision and directed Veress needle through this incision until intraperitoneal placement was confirmed using saline drop test. I then proceed with insufflation using CO2 gas and opening pressure of 2 mmHg was noted. I proceeded to maximum pressure of 15 mmHg, at which point I removed the Veress needle and introduced an 8 mm blunt da Sky camera trocar. Once this was in place, I am able to confirm intraperitoneal placement and confirmed no damage upon entry. I then have the patient placed in steep Trendelenburg and placed two lateral trocars. These were both 8 mm trocars approximately 8cm lateral to my infraumbilical trocar. The skin was infiltrated using 0.25% Marcaine, 8 mm incisions were made and the trocars were placed under direct visualization of the laparoscope. Once these are in place, I am able to visualize all the anatomy necessary to perform the procedure as discussed with the patient preoperatively. I then brought in the [employer] robot and docked in the appropriate fashion placing the vessel sealer in the left hand and monopolar catalino in the right hand. I then took my place at the [employer] operative console and performed the following dissection bilaterally. I first grasped the uteroovarian ligament bipolar, cauterized and transected using the vessel sealer. I then created a window in the mesosalpinx using the monopolar catalino and take this laterally using the vessel sealer and amputating the fallopian tube from its blood supply. I then grasped the round ligament bipolar, cauterized this and transected using the vessel sealer. I then unable to grasp the entire broad ligament. I bipolar cauterized and transected using the vessel sealer down to the level of the lower uterine segment. There are significant adhesions of the bladder to the lower uterine segment, which I had to take down carefully with the monopolar shear; however, once it is taken down, unable to visualize the anterior fornix. Once I am able to visualize the anterior fornix, I took the anterior leaflet of the broad ligament dissection around to the anterior vaginal fornix, posterior leaflet segment and posterior vaginal fornix. This allowed me to skeletonize the vessels of the uterus bilaterally. I bipolar cauterized the uterine vessels and then transected using the vessel sealer. I then performed a colpotomy at 12 o'clock position and circumferentially amputate the cervix from the surrounding vaginal fornix using monopolar cautery, after which the entire specimen was removed through the vagina. I then closed the vaginal cuff and the lateral vaginal apices using 2-0 Vicryl suture in a [id number] fashion, colposuspending them to the uterosacral ligament. I then closed the remainder of the vaginal cuff using 2-0 V-Loc in a running fashion, after which there was no active bleeding noted from any of my dissection planes. I then undocked the da Sky robot and proceeded with the remainder of the case laparoscopically, copiously irrigating the pelvis using normal saline. Once again, there is no active bleeding from my dissection planes and placed FloSeal hemostatic agent over all my planes of dissection and slowly as the patient taken out of steep Trendelenburg, I removed the lateral trocars under direct visualization of the laparoscope. The infraumbilical trocar was left in place to release insufflation and to introduce 10 mL of 0.25% Marcaine for postoperative pain management. I then removed this trocar as well and closed the skin using 4-0 Monocryl in interrupted subcuticular stitches. Dermabond was applied to the incision and Band-Aids were placed over this. I then performed a change of gloves and took my attention to the pelvis again where the Grijalva catheter still in place. I then incised the perineal body in an upside down triangle fashion going from 5 o'clock to 7 o'clock on the mucocutaneous junction using a knife and taking off the epithelium of the perineal body in an upside down triangle fashion. Once the epithelium was removed, I then took my dissection from the lateral aspects of this around the rectocele defect. Before I do this, I infiltrated all the vaginal mucosa with vasopressin concentration of 10 units in 50 mL of normal saline. I undermined the submucosa of the lateral aspects of the rectocele using Metzenbaum scissors all the way to its apex, which is proximal to the vaginal cuff and the vagina. Once the entire borders of this are liberated from the submucosa, I am able to incise this tissue and bluntly dissected off the underlying rectocele defect. Once it was removed, I then reapproximated the opening in the vagina and plicating the rectocele using 3-0 Vicryl suture in full thickness fashion. This is a running locking suture. I will be sure to incorporate the mucosa of the submucosa and the rectovaginal fascia in this reapproximation to ensure good postoperative healing. When I reached the mucocutaneous junction, I then placed three separate crown stitches using 0 Vicryl suture reapproximating the perineal body and reinforcing the previously noted perineal laxity. I then proceeded with my 3-0 Vicryl suture from before in submucosal fashion down to the apex of the perineal opening. I then from the apex come back up to the mucocutaneous junction subcuticularly hiding my suture and reapproximating the skin. The suture was then buried inside the vaginal introitus. Grijalva catheter was left in place. I then packed the vagina using Premarin soaked vaginal packing. Lap and sponge count was correct at the end of the procedure. Instrument counts were correct as well. The patient tolerated the procedure well and sent to recovery in stable condition. A 500 mg of Flagyl and 900 mg of clindamycin given preoperatively for infection prophylaxis. Job ID: [id number] DocumentID: [id number] Dictated Date: 10/26/2017 11:17:49 [employer] Date: 10/26/2017 16:42:17 Dictated By: ROBERTO CARDENAS DO MTDD
[2017-10-26] MEDS: DOCUSATE SODIUM 100 MG (COLACE) CAP PO PRN (22:19)
[2017-10-27 00:22] VITALS: BP 96/60
[2017-10-27] MEDS ORDERED: IBUPROFEN 600 MG (MOTRIN) TAB PO PRN (02:45)
[2017-10-27] MEDS: HYDROcodone/APAP 7.5 MG/325 MG (LORTAB, LORCET PLUS) TABLET PO PRN ×2 (03:06→08:07)
[2017-10-27 04:19] VITALS: BP 96/58
--- NOTE | 2017-10-27 06:31 | Progress Note-Standard ---
Standard Progress Note Progress Notes/Assess & Plan Date Seen by Provider: Oct 27, 2017 Time Seen by Provider: 06:15 Progress/Assessment & Plan Patient doing well without concern. Reports ongoing discomfort that is managed well with pain meds. Vag packing light-moderately saturated, no ongoing bleeding. Catheter out and patient has yet to void. Vital Sign - Last 24 Hours 10/26/17 10/26/17 10/26/17 10/26/17 11:05 11:30 11:45 11:55 Temp 97.6 Pulse 82 65 Resp 18 16 B/P (MAP) 108/61 (77) 97/59 (72) Pulse Ox 97 100 87 100 O2 Delivery Room Air Room Air Nasal Cannula Nasal Cannula O2 Flow Rate 3.00 3.00 10/26/17 10/26/17 10/26/17 10/26/17 12:00 12:00 12:20 12:30 Pulse 75 84 Resp 16 12 16 B/P (MAP) 92/51 (65) 104/57 (73) Pulse Ox 100 100 100 100 O2 Delivery Nasal Cannula Nasal Cannula Nasal Cannula Nasal Cannula O2 Flow Rate 3.00 3.00 3.00 3.00 10/26/17 10/26/17 10/26/17 10/26/17 13:30 14:30 15:00 15:46 Pulse 82 84 117 Resp 12 14 12 Pulse Ox 100 99 96 95 O2 Delivery Nasal Cannula Nasal Cannula Nasal Cannula Room Air O2 Flow Rate 3.00 3.00 3.00 10/26/17 10/26/17 10/26/17 10/27/17 15:50 20:08 21:00 00:22 Temp 98.0 98.6 98.5 Pulse 88 103 92 Resp 14 19 19 B/P (MAP) 101/50 (67) 92/55 (67) 96/60 (72) Pulse Ox 99 94 95 O2 Delivery Room Air Room Air Room Air Room Air 10/27/17 04:19 Temp 98.2 Pulse 80 Resp 16 B/P (MAP) 96/58 (71) Pulse Ox 94 O2 Delivery Room Air Intake and Output 10/26/17 10/26/17 10/27/17 15:00 23:00 07:00 Intake Total 2150 ml 2040 ml Output Total 1100 ml 300 ml Balance 1050 ml 1740 ml DC pending void ALESHIA CARDENAS DO Oct 27, 2017 6:31 am
[2017-10-27] MEDS: DOCUSATE SODIUM 100 MG (COLACE) CAP PO PRN (07:50)
[2017-10-27 07:55] VITALS: BP 109/68
[2017-10-27 09:20] VITALS: BP 109/68
== END 2017-10-27 09:20 | disposition home or self-care (01) ==
LOC: SDC 06:00 → WS 11:22 → SDC 10-27 09:20
PROVIDERS: ATTEND Obstetrics & Gynecology
DX: N81.3 Complete uterovaginal prolapse (principal); N81.6 Rectocele; N72 Inflammatory disease of cervix uteri; N83.8 Other noninflammatory disorders of ovary, fallopian tube and broad ligament; J45.909 Unspecified asthma, uncomplicated; M79.7 Fibromyalgia; Z79.899 Other long term (current) drug therapy
CPT/HCPCS: 84703; 86850; 86900; 86901; 88307; 94664; 94760

== ENCOUNTER → 2018-10-17 | Outpatient (CLI) | payer MEDICAID ==
[~2018-10-17] MED LIST changes: +HYDR-34 PO; +SIME80TA16 PO
--- NOTE | 2018-10-17 17:58 | Diagnostic Imaging Report ---
PROCEDURE: MRI left upper extremity without contrast. TECHNIQUE: Multiplanar, multisequence [id number] MRI of the left upper extremity was accomplished. INDICATION: Painful limitations in range of motion; patient was involved in an injury in January 2018. FINDINGS: There is no bone contusion, marrow edema, osteochondral injury, or fracture pattern. The components of the rotator cuff reveal an unremarkable volume, morphology, and signal intensity. The long head of the biceps tendon is intact centered within the bicipital groove. No gross labral detachment. No loose body. No joint effusion. Deltoid attachment appears intact. The AC joint is unremarkable. No axillary mass or adenopathy. IMPRESSION: Unremarkable MRI shoulder. Intact rotator cuff. No acute bony pathology. No significant abnormality. Dictated by: Dictated on workstation # [id number]
== END ==
LOC: RAD 15:12
PROVIDERS: ATTEND Family Medicine
DX: M67.912 Unspecified disorder of synovium and tendon, left shoulder (principal); M75.22 Bicipital tendinitis, left shoulder
CPT/HCPCS: 73221

== ENCOUNTER 2018-10-26 08:27 | Outpatient (RCR) | payer MEDICAID | END 2018-11-18 | disposition home or self-care (01) | PROVIDERS: ATTEND Family Medicine | DX: M25.512 Pain in left shoulder (principal); M75.22 Bicipital tendinitis, left shoulder; M79.7 Fibromyalgia ==

== ENCOUNTER 2019-08-07 23:14 | Emergency (ER) | payer MEDICAID ==
[~2019-08-07] VITALS: Ht 172 cm; Wt 100.0 kg
--- NOTE | 2019-08-08 01:27 | ED Upper Extremity ---
General Chief Complaint: Orthopedic Problems Stated Complaint: LEFT WRIST SWELLING Nursing Triage Note: pt states she fx the distal head of her radius on the 13 of july and has a cast on the l forearm. pt states that earlier today she noticed increased tightness to the extremity and states that her fingers are intermittently becoming numb on the palmar side. Nursing Sepsis Screen: No Definite Risk Source: patient History of Present Illness Date Seen by Provider: Aug 07, 2019 Time Seen by Provider: 23:59 Initial Comments PT ARRIVES VIA POV FROM HOME PT STATES SHE BROKE HER LEFT WRIST ON 07/13/[address] DANIELS, AND HAD A CAST PUT ON 1 WEEK LATER. STATES SHE HAS BEEN DOING WELL, AND CAST WAS SOMEWHAT LOOSE DUE TO DECREASED SWELLING OVER TIME. STATES SHE HAS A FOLLOW UP APPOINTMENT WITH DR. DANIELS ON 08/15/19 STATES SINCE LAST NIGHT, SHE HAS HAD SOME INCREASED PAIN SWELLING TO HER LEFT WRIST, HAND AND FINGERS AND NOW THE CAST FEELS TIGHT, AND HER FINGERS ARE FEELING A LITTLE TINGLY. FINGERS HAVE NOT BEEN BLUE OR COLD. NO NEW INJURY PT DENIES ANY POSSIBILITY WHATSOEVER THAT SHE MIGHT POSSIBLY HAVE HAD INCREASED SODIUM INTAKE IN HER DIET (STATES SHE HAD POTATO SOUP, PRIME RIB AND BAKED POTATOES TO EAT), ANY INCREASED USE OF THE HAND/ARM OVER THE LAST 2 DAYS DUE TO THE HOLIDAY, AND DENIES ANY INCREASED STANDING WITH HAND/ARM DOWN AT SIDE, ETC. PT HAS NOT APPLIED ICE TO IT OR TAKEN ANY PAIN MEDICATIONS PT IS RIGHT HANDED DENIES ANY PRIOR INJURY TO THIS HAND/WRIST/ARM. DOES STATE THAT SHE ALSO INJURED HER LEFT ELBOW AND LEFT SHOULDER WHEN SHE BROKE HER WRIST, BUT DID NOT BREAK ANY OTHER BONES. Allergies and Home Medications Allergies Coded Allergies: cephalexin (Verified Allergy, Unknown, 09/01/17) nitrofurantoin (Verified Allergy, Unknown, 09/01/17) Home Medications Azithromycin 250 Mg Tablet, 250 MG PO DAILY, (Reported) TAKE 2 TABLETS ON DAY ONE THEN TAKE 1 TABLET DAILY FOR FOUR MORE DAYS STARTED ON 10/23/17 Cetirizine HCl 10 Mg Capsule, 10 MG PO DAILY, (Reported) Cholecalciferol (Vitamin D3) 10,000 Unit Capsule, 10,000 UNIT PO DAILY, (Reported) Docusate Sodium 100 Mg Capsule, 100 MG PO BID PRN for CONSTIPATION-1ST LINE Prescribed by: ALESHIA CARDENAS on 10/26/17 1010 Ferrous Sulfate 325 Mg Tablet.dr, 325 MG PO DAILY, (Reported) Hydrocodone Bit/Acetaminophen 1 Ea Tablet, 2 EA PO Q6H PRN for Pain-See Ins tructions Prescribed by: ALESHIA CARDENAS on 10/26/17 1010 Ibuprofen 600 Mg Tablet, 600 MG PO Q6H PRN for PAIN-MODERATE Prescribed by: ALESHIA CARDENAS on 10/26/17 1010 Magnesium Chloride 64 Mg Tablet.dr, 64 MG PO DAILY, (Reported) Vit W-Ca,Fe,FA(<1 mg) 1 Each Tablet, 1 TAB PO DAILY, (Reported) Simethicone 80 Mg Tab.chew, 40 MG PO TID PRN for INDIGESTION 2ND LINE Prescribed by: ALESHIA CARDENAS on 10/26/17 1010 Patient Home Medication List Home Medication List Reviewed: Yes Review of Systems Constitutional: no symptoms reported Musculoskeletal: see HPI Skin: no symptoms reported Psychiatric/Neurological: See HPI Past Cfnmsza-Suedfn-Pmxwnk Hx Past Med/Social Hx: Reviewed and Corrections made Patient Social History Alcohol Use: Occasionally Uses Alcohol Beverage of Choice: Beer Recreational Drug Use: No Smoking Status: Current Everyday Smoker Type Used: Cigarettes Recent Foreign Travel: No Contact w/Someone Who Travel: No Recent Infectious Disease Expo: No Recent Hopitalizations: No Physical Abuse: No Sexual Abuse: No Mistreated: No Fear: No Immunizations Up To Date Tetanus Booster (TDap): Unknown PED Vaccines UTD: Yes Seasonal Allergies Seasonal Allergies: Yes Past Medical History Surgeries: Yes (L BREAST-BENIGN LUMPECTOMY;UMB. HERNIA REPAIR;HYST/RECTOCOELE/PERINEOPLASTY) Abdominal, Breast, Section, Hysterectomy Respiratory: Yes Asthma Currently Using CPAP: No Currently Using BIPAP: No Cardiac: Yes (tachycardia with last resolved now) Neurological: No : No Reproductive Disorders: Yes (PELVIC ORGAN PROLAPSE-S/P HYST/RECTOCOELE/PERINEOPLASTY 2018-OVARIES INTACT) PUBLIC RELATIONS COUNSELOR History: Hysterectomy Sexually Transmitted Disease: No HIV/AIDS: No Genitourinary: No Gastrointestinal: Yes (recent gluten intolerance) Musculoskeletal: Yes (LEFT DISTAL RADIUS FRACTURE 07/13/19--NO SURGERY) Fibromyalgia, Fractures Endocrine: No HEENT: No Cancer: No Psychosocial: No Integumentary: No Blood Disorders: No Family Medical History Cardiovascular disease 19 FATHER Diabetes mellitus 19 FATHER 19 MOTHER Hypertension 19 FATHER Psychosocial problem 19 MOTHER Physical Exam Vital Signs Vital Signs - First Documented 08/07/19 23:30 Temp 36.6 Pulse 81 Resp 20 B/P (MAP) 129/63 (85) Pulse Ox 98 O2 Delivery Room Air Capillary Refill : Less Than 3 Seconds Height, Weight, BMI Height: 5'8.00" Weight: 197lbs. 0.0oz. 89.389295fs; 33.00 BMI Method: General Appearance: WD/WN, no apparent distress Elbow/Forearm: Left (LEFT ARM WITH SHORT ARM CAST IN PLACE, HAS MILD SWELLING TO ALL FINGERS, BUT ALL ARE PINK AND WARM WITH GOOD CAPILLARY REFILL. MOTOR/SENSORY/VASCULAR INTACT. AT LEAST 1 FINGER ABLE TO PASS UNDER CAST AT ALL EDGES OF CAST. ) Neurologic/Tendon: normal sensation, normal motor functions, normal tendon functions Neurologic/Psychiatric: no motor/sensory deficits, alert, normal mood/affect, oriented x 3 Skin: normal color, warm/dry Progress/Results/Core Measures Results/Orders My Orders Orders - PATRICK MOTLEY DO Wrist, Left, 3 Views Or More (08/08/19 00:17) Prednisone Tablet (Deltasone Tablet) (08/08/19 01:30) Medications Given in ED Current Medications Medications Dose Ordered Sig/Cristina Route Start Time Stop Time Status Last Admin Dose Admin Prednisone 40 mg ONCE ONCE PO 08/08/19 01:30 08/08/19 01:31 DC 08/08/19 01:32 40 MG Vital Signs/I&O 08/07/19 08/08/19 23:30 01:33 Temp 36.6 36.6 Pulse 81 80 Resp 20 18 B/P (MAP) 129/63 (85) 127/62 (85) Pulse Ox 98 98 O2 Delivery Room Air Room Air Blood Pressure Mean: 85 Progress Progress Note : Progress Note APPLIED ICE AND HAD PT ELEVATE THE HAND PRIOR TO DISMISSAL, THERE IS REDUCTION IN SWELLING AND PT STATES HER PAIN IS LESS, AND THE TINGLING IN HER FINGERS IS GONE STATES THE CAST STILL FEELS A LITTLE TIGHT AT THE WRIST AREA. PT LATER STATES IT MIGHT BE POSSIBLE THAT SHE HAS BEEN STANDING MORE, WITH HER LEFT ARM DOWN AT HER SIDE, AND HAS BEEN MORE ACTIVE WITH USING LEFT HAND/ARM OVER THE LAST COUPLE OF DAYS, DUE TO THE HOLIDAY. REASSURANCE GIVEN TO PT, THAT CAST DOES NOT NEED TO BE REMOVED AT THIS TIME ALSO ADVISED THAT PT CONTINUE TO APPLY ICE AND TO KEEP HER HAND HIGHER THAN HER HEART MUCH POSSIBLE PT ADVISED TO FOLLOW UP WITH DR. DANIELS TOMORROW FOR FURTHER CARE Diagnostic Imaging Comments XRAYS LEFT WRIST--STABLE APPEARING DISTAL RADIUS FRACTURE, PENDING RADIOLOGIST REVIEW Reviewed: Reviewed by Me Departure Impression Primary Impression: WRIST PAIN AND SWELLING Additional Impressions: Closed fracture of left distal radius Cast discomfort Disposition: 01 HOME, SELF-CARE Condition: Improved Departure-Patient Inst. Referrals: MISSAEL BUSTILLOS MD (PCP) Primary Care Physician [facility] [place] [facility] [place] Primary Care Physician ALESHIA DANIELS MD Patient Instructions: Radius Fracture (DC) Add. Discharge Instructions: ICE TO AREA AT 20 MINUTE INTERVALS ELEVATE HAND MUCH POSSIBLE FOLLOW UP WITH DR. DANIELS TOMORROW FOR FURTHER CARE All discharge instructions reviewed with patient and/or family. Voiced understanding. PATRICK MOTLEY DO Aug 08, 2019 01:27
[2019-08-08] MEDS ORDERED: predniSONE 20 MG TAB PO ONE (01:30)
[2019-08-08 01:33] VITALS: BP 127/62
--- NOTE | 2019-08-08 06:49 | Diagnostic Imaging Report ---
INDICATION: Left wrist injury followup 3 views of the left wrist show an opaque splint in place. There is an impacted fracture of the distal radius at the level of the metaphysis with minimal dorsal angulation. IMPRESSION: Impacted fracture distal left radius at the level of the metaphysis with near normal anatomic alignment. Dictated by: Dictated on workstation # [id number]
== END 2019-08-08 01:35 | disposition home or self-care (01) ==
LOC: EDUNIT# 23:14 → ER 23:17
DX: S52.502A Unspecified fracture of the lower end of left radius, initial encounter for closed fracture (principal); J45.909 Unspecified asthma, uncomplicated; M79.7 Fibromyalgia; F17.210 Nicotine dependence, cigarettes, uncomplicated; Z88.1 Allergy status to other antibiotic agents; Z88.8 Allergy status to other drugs, medicaments and biological substances; Z98.51 Tubal ligation status; Z82.49 Family history of ischemic heart disease and other diseases of the circulatory system; X58.XXXA Exposure to other specified factors, initial encounter
CPT/HCPCS: 73110

== ENCOUNTER 2019-10-09 08:58 | Outpatient (RCR) | payer MEDICAID | END 2019-11-04 14:45 | disposition home or self-care (01) | PROVIDERS: ATTEND Nurse Practitioner | DX: S52.35 Comminuted fracture of shaft of radius (principal); S46.012D Strain of muscle(s) and tendon(s) of the rotator cuff of left shoulder, subsequent encounter ==

== ENCOUNTER → 2019-10-21 | Outpatient (CLI) | payer MEDICAID ==
--- NOTE | 2019-10-21 14:48 | Diagnostic Imaging Report ---
INDICATION: Palpable lump in the left breast and milky discharge. Patient states that her physician felt a lump in the right breast; however, the patient denies a lump in the right breast. COMPARISON: No prior mammograms are available for comparison. TECHNIQUE: 2D and 3D bilateral diagnostic mammography was performed. A BB marker was placed at the area of palpable abnormality in the left breast. FINDINGS: Both breasts are heterogeneously dense, limiting the sensitivity of mammography. There is some questionable nodular density in the medial anterior left breast at the area of palpable abnormality. Further evaluation of this area with ultrasound is recommended. The right breast is unremarkable. There are benign calcifications bilaterally. The axillae are unremarkable. IMPRESSION: Slight nodular density in the medial lower left breast at the area of palpable abnormality. Further evaluation with ultrasound is recommended and will be performed today. ACR BI-RADS Category 0: Incomplete. (Needs additional imaging evaluation). Result letter will be mailed to the patient. Note: At least 10% of breast cancer is not imaged by mammography. Dictated by: Dictated on workstation # [id number]
--- NOTE | 2019-10-21 15:12 | Diagnostic Imaging Report ---
INDICATION: Palpable lump left breast. CORRELATION is made with diagnostic mammogram earlier same day. Sonographic interrogation of all 4 quadrants of the left breast as well as the retroareolar left breast was performed. There is an ovoid, circumscribed simple appearing cyst in the retroareolar area at the 8 o'clock location of the left breast, corresponding to the patient's palpable abnormality. This measures 16 mm x 11 mm x 6 mm. No internal vascularity is seen. No other abnormalities are detected. IMPRESSION: BI-RADS 2 Simple cyst retroareolar 8:00 location left breast corresponding to the patient's palpable abnormality. The patient may return to routine annual screening mammography. Dictated by: Dictated on workstation # [id number]
== END ==
LOC: RAD 10-17 08:59
PROVIDERS: ATTEND Nurse Practitioner Family
DX: N60.02 Solitary cyst of left breast (principal); N63.20 Unspecified lump in the left breast, unspecified quadrant
CPT/HCPCS: 76642; 77066

== ENCOUNTER → 2019-11-04 | Outpatient (CLI) | payer MEDICAID ==
[~2019-11-04] VITALS: Ht 172.7 cm; Wt 97.7 kg
[~2019-11-04] MED LIST changes: +GADOBUTROL 7.5 MMOL/7.5 ML (GADAVIST) VIAL IV ONE; +IOHEXOL 300 MG/ML 50 ML (OMNIPAQUE 300) VIAL IV ONE
--- NOTE | 2019-11-04 13:11 | Diagnostic Imaging Report ---
INDICATION: Left wrist pain. Patient has had recent distal radius fracture. TECHNIQUE: The patient was brought to the procedure room and placed on the table in the prone position. The skin of the dorsum of the left wrist was prepped and draped in the usual sterile fashion. A small amount of 1% lidocaine was utilized for local anesthesia. A 25-gauge butterfly needle was advanced into the right wrist just distal to the distal radius. An approximately 3 cc mixture of iodinated contrast, normal saline, and gadolinium was injected into the radiocarpal joint space under fluoroscopic observation. 50 seconds of fluoroscopic time was utilized. The wrist was arranged under fluoroscopic observation. The needle was withdrawn and hemostasis was obtained. The patient tolerated the procedure well and was sent to MRI in satisfactory condition. IMPRESSION: Successful fluoroscopically assisted left radiocarpal joint injection of a gadolinium contrast solution for MRI. Dictated by: Dictated on workstation # [id number]
--- NOTE | 2019-11-04 14:10 | Diagnostic Imaging Report ---
EXAMINATION: Magnetic resonance imaging of the left wrist with intra-articular contrast. DATE: November 04, 2019. COMPARISON: Left wrist arthrogram November 04, 2019. Left wrist radiographs August 08, 2019. HISTORY: 39-year-old female, left wrist pain after fall. TECHNIQUE: Magnetic Resonance Imaging sequences were performed of the wrist following the intra-articular administration of contrast. FINDINGS: TRIANGULAR FIBROCARTILAGE COMPLEX: There is abnormal fluid in the distal radioulnar joint. Evaluation of the triangular fibrocartilage complex is limited on this exam given motion artifact and low wvbzmz-ov-smkyv ratio. There is question of a radial sided tear involving the triangular fibrocartilage disc. INTRINSIC LIGAMENTS: The scapholunate and lunotriquetral ligaments are intact. There is no abnormal extension of contrast into the midcarpal compartment. JOINTS: The radiocarpal, intercarpal, and distal radioulnar joints are intact. There is no joint effusion. CARPAL TUNNEL: The flexor retinaculum is unremarkable. The flexor digitorum superficialis and profundus are intact. The median nerve is unremarkable. FLEXOR TENDONS: The flexor carpi ulnaris, flexor pollicis longus, and carpi radialis are intact. EXTENSOR TENDONS: There is tendinopathy of the first extensor compartment tendons. There is a small amount of fluid in the second extensor compartment tendon sheath which may be normal following arthrogram procedure. Additional evaluation of the extensor tendons is unremarkable. BONE: There are subtle visualized fracture lines of the distal radius at the level of the distal radial metaphysis with intra-articular fracture extension. There is no particularly prominent adjacent marrow edema. This likely relates to partial healing response of prior fracture. No new fracture is identified. BURSAE AND SOFT TISSUES: The bursae and soft tissues surrounding the wrist are within normal limits. IMPRESSION: 1. Incomplete healing of prior distal radius fracture with persistent subtle fracture lines. 2. Abnormal fluid in the distal radioulnar joint and questionable tear of the radial aspect of the triangular fibrocartilage disc. The study is suboptimal for evaluation of the triangular fibrocartilage complex given some artifact as well as low xoyrml-as-qynio ratio. 3. Intact scapholunate and lunatotriquetral ligaments. 4. Tendinitis of the first extensor compartment tendons. Dictated by: Dictated on workstation # [id number]
== END ==
LOC: RAD 11-01 12:37
PROVIDERS: ATTEND Nurse Practitioner
DX: S46.012D Strain of muscle(s) and tendon(s) of the rotator cuff of left shoulder, subsequent encounter (principal); S52.35 Comminuted fracture of shaft of radius; M77.8 Other enthesopathies, not elsewhere classified; W19.XXXD Unspecified fall, subsequent encounter
CPT/HCPCS: 25246; 73115; 73222

== ENCOUNTER → 2020-06-23 | Outpatient (CLI) | payer MEDICAID ==
[~2020-06-23] MED LIST changes: -GADOBUTROL 7.5 MMOL/7.5 ML (GADAVIST) VIAL IV ONE; -IOHEXOL 300 MG/ML 50 ML (OMNIPAQUE 300) VIAL IV ONE
--- NOTE | 2020-06-23 12:27 | Diagnostic Imaging Report ---
PROCEDURE: MRI left upper extremity without contrast. TECHNIQUE: Multiplanar, multisequence non contrast-enhanced MRI of the left upper extremity was accomplished. INDICATION: Fall June 2019 with persistent left shoulder pain COMPARISON: 10/17/2018 FINDINGS: No acute fracture is seen in the left shoulder. Alignment appears normal. Joint spaces are preserved. There is no joint effusion. There is mild tendinosis in the supraspinatus tendon with no high-grade partial-thickness or full-thickness tears. The infraspinatus and teres minor tendons are intact. The subscapularis tendon appears intact. There is a small amount of fluid in the subacromial subdeltoid bursa. The long head of the biceps tendon is normal in course and signal. The glenoid labrum is suboptimally evaluated in the absence of intra-articular contrast, but no para labral cyst is seen. The acromion has a curved undersurface without hooking. The coracoclavicular and coracoacromial ligaments are intact. Soft tissues about the left shoulder are otherwise unremarkable. IMPRESSION: 1. Mild tendinosis in the left supraspinatus tendon with no rotator cuff tear seen. 2. Mild subacromial fluid, may represent a mild bursitis. Dictated by: Dictated on workstation # [id number]
== END ==
LOC: RAD 11:00
PROVIDERS: ATTEND Orthopaedic Surgery
DX: M77.8 Other enthesopathies, not elsewhere classified (principal)
CPT/HCPCS: 73221

== ENCOUNTER → 2022-09-12 | Outpatient (CLI) | payer MEDICAID ==
[~2022-09-12] VITALS: Ht 172.7 cm; Wt 102.3 kg
--- NOTE | 2022-09-12 15:43 | Diagnostic Imaging Report ---
PROCEDURE: MRI upper extremity any joint with contrast right. TECHNIQUE: Multiplanar, multisequence contrast-enhanced MRI of the right upper extremity was accomplished. INDICATION: Right shoulder pain. COMPARISON: None. FINDINGS: No acute fracture is seen in the right shoulder. Alignment appears normal. The joint is distended with contrast. The supraspinatus tendon is intact. The infraspinatus, teres minor, and subscapularis tendons appear intact. The long head of the biceps tendon is intact with no tear seen. There may be some intrasubstance contrast. The right glenoid labrum does appear to have a tear superiorly which extends to about 11 o'clock posteriorly and 1 o'clock anteriorly. No paralabral cyst is seen. The acromion has a curved undersurface. There is a small amount of fluid in the subacromial/subdeltoid bursa. The coracoclavicular and coracoacromial ligaments are intact. No muscular atrophy is seen. IMPRESSION: 1. Small tear at the superior right glenoid labrum. No paralabral cyst. 2. Mild subacromial/subdeltoid bursitis. 3. No rotator cuff tear is seen. Dictated by: Dictated on workstation # [id number]
--- NOTE | 2022-09-12 16:01 | Diagnostic Imaging Report ---
INDICATION: Right shoulder pain. Patient presents for right shoulder injection prior to MRI. Patient brought to the procedure room placed on table in the supine position. The right shoulder was prepped and draped in the usual sterile fashion. Small amount of 1% lidocaine was utilized for local anesthesia. 22-gauge needle was advanced to the right shoulder at the rotator interval. A 15 mm solution of iodinated contrast, normal saline and gadolinium was injected under fluoroscopic observation. Total of 13 seconds of fluoroscopic time was utilized. Needle was removed and hemostasis was obtained. Patient tolerated the procedure well and was sent to MRI in satisfactory condition. IMPRESSION: Successful right shoulder injection of gadolinium contrast solution, using fluoroscopy. Dictated by: Dictated on workstation # [id number]
== END ==
LOC: RAD 08-22 13:15
PROVIDERS: ATTEND Nurse Practitioner
DX: S43.431A Superior glenoid labrum lesion of right shoulder, initial encounter (principal)
CPT/HCPCS: 73040; 73222